=== PATIENT | male | born 1965 | race Caucasian/White ===

== ENCOUNTER 2018-02-02 09:41 | Day surgery (SDC) | payer BC ==
[~2018-02-02 09:41] MED LIST: Metoclopramide 10 MG/2 ML SDV IV PRN; Sodium Chloride 0.9% 10 ML Syringe FLUSH PRN
[2018-02-02] MEDS ORDERED: Sodium Chloride 0.9% 1,000 ML IV SCH (10:30)
[2018-02-02] MEDS ORDERED: Propofol 1,000 MG/100 ML SDV ONE (13:25)
--- NOTE | 2018-02-02 20:27 | OR ---
DATE OF OPERATION: 02/02/2018 PREOPERATIVE DIAGNOSIS: Screening colonoscopy. POSTOPERATIVE DIAGNOSIS: Screening colonoscopy. PROCEDURE: Colonoscopy with polypectomy. ANESTHESIA: MAC. ESTIMATED BLOOD LOSS: Minimal. COMPLICATIONS: None. INDICATIONS FOR THE PROCEDURE: The patient is a 52-year-old male, here today for his first screening colonoscopy. He denies any family history of colon cancer. There is no change in bowel habits. DESCRIPTION OF PROCEDURE: Informed consent was obtained from the patient. The patient was taken to the operating room, placed on table in left lateral decubitus position. Monitored anesthesia care was administered. Digital rectal exam was normal. Colonoscope was then advanced through the anus directed toward the cecum. Cecum was identified by appendiceal orifice as well as ileocecal valve. Colonoscope was then slowly withdrawn. The patient did have one small sessile polyp in the descending colon. This was removed with hot biopsy polypectomy. The patient also noted to have just a few descending and sigmoid diverticula. Remainder of the colon was otherwise unremarkable. No masses. No areas of ischemia or inflammation were identified retroflexion was performed in the rectum which was also unremarkable. Colonoscope was then withdrawn. The patient tolerated procedure well and was brought to recovery room in good condition. FINDINGS: Descending and sigmoid diverticulosis and descending colon polyp. RECOMMENDATIONS: Would recommend repeat colonoscopy in five years due to polyp, would also recommend high fiber, increased water intake for his diverticulosis. DIVYA/QUANG /[id number]
== END 2018-02-02 16:09 | disposition home or self-care (01) ==
LOC: LB.SDS 09:41
PROVIDERS: ATTEND Surgery
DX: Z12.11 Encounter for screening for malignant neoplasm of colon (principal); D12.4 Benign neoplasm of descending colon; K57.30 Diverticulosis of large intestine without perforation or abscess without bleeding; I10 Essential (primary) hypertension; Z79.899 Other long term (current) drug therapy; Z88.6 Allergy status to analgesic agent
CPT/HCPCS: 88305; J2704; J2765; J7030

== ENCOUNTER 2023-06-23 11:28 | Day surgery (SDC) | payer BC ==
[~2023-06-23 11:28] MED LIST changes: -Sodium Chloride 0.9% 10 ML Syringe FLUSH PRN
[2023-06-23] MEDS: Sodium Chloride 0.9% 1,000 ML IV SCH (12:03)
== END 2023-06-23 14:17 | disposition home or self-care (01) ==
LOC: LB.SDS 11:28
PROVIDERS: ATTEND Surgery
DX: Z12.11 Encounter for screening for malignant neoplasm of colon (principal); Z79.899 Other long term (current) drug therapy; K57.30 Diverticulosis of large intestine without perforation or abscess without bleeding
CPT/HCPCS: J2704; J7030